=== PATIENT | female | born 1995 | race Caucasian/White ===

== ENCOUNTER 2017-03-29 19:08 | Emergency (ER) | payer MEDICAID ==
[2017-03-29] MEDS ORDERED: NS 1,000 ML IV ONE (19:25)
[2017-03-29] MEDS ORDERED: LORazepam 2 MG/ML INJ IVP ONE (19:25)
[2017-03-29] MEDS ORDERED: KETOROLAC 30 MG/1 ML SDV IVP ONE (19:25)
--- NOTE | 2017-03-29 19:25 | EDPHY ---
H & P Time Seen by Provider: 03/29/17 19:10 HPI/ROS: Chief complaint. Syncope HPI. 21-year-old female here by EMS after syncopal episode. 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 She began to feel hot and lightheaded and dizzy and then had an unwitnessed syncopal episode. She complains of pain to the right side of her neck. No previous syncope. She was feeling well when she went to work today. She has no chest discomfort or trouble breathing. No abdominal pain. No unusual pain swelling to her legs. She takes propranolol for fast heart rate ROS Constitutional. no fever/chills, no weakness Eyes. no problems with vision ENT. no sore throat, no nasal drainage Cardiovascular. no chest pain Respiratory. no shortness of breath, no cough Abdominal. no abdominal pain, no nausea/vomiting, no diarrhea . no problems urinating MS. Right-sided neck pain Skin. no rash Lymph. no swollen glands Neuro. Syncope Past Medical/Surgical History: Hypertension, depression Social History: Single, nonsmoker, no alcohol Physical Exam: General Appearance: Alert well-developed female mild distress vital signs are stable Eyes: Pupils equal and round no pallor or injection. ENT, Mouth: Mucous membranes are moist. Respiratory: There are no retractions, lungs are clear to auscultation. Cardiovascular: Regular rate and rhythm. Gastrointestinal: Abdomen is soft and nontender, no masses, bowel sounds normal. Neurological: Awake and alert, sensory and motor exams grossly normal. Skin: Warm and dry, no rashes. Musculoskeletal: Neck is restrained per EMS. Tenderness to the right side of her neck with palpation. Extremities symmetrical, full range of motion. Psychiatric: Patient is oriented X 3, there is no agitation. Constitutional: Initial Vital Signs Temperature (C) 37.1 C 03/29/17 19:08 Heart Rate 81 03/29/17 19:08 Respiratory Rate 22 H 03/29/17 19:08 Blood Pressure 118/84 H 03/29/17 19:08 O2 Sat (%) 97 03/29/17 19:08 O2 Delivery Mode Room Air O2 (L/minute) 2 Allergies/Adverse Reactions: No Known Allergies Allergy (Unverified 03/29/17 19:31) Home Medications: Medication Instructions Recorded Citalopram 03/29/17 Hydrocodone/APAP 5/325 [[place] 1 each PO Q4-6PRN PRN #8 tab 03/29/17 5/325 (*)] Hydroxycut 03/29/17 Prazosin HCl 03/29/17 Propranolol HCl 03/29/17 Medical Decision Making - Diagnostics EKG Interpretation: EKG interpreted by me shows normal sinus rhythm with normal interval and axis. QRS is normal there is no significant ST elevation or depression. No arrhythmia. The rate is 71 Imaging Results: Imaging Impressions Cervical Spine CT 03/29/17 19:25 IMPRESSION: 1. Secondary feature suggestive of some mild underlying muscle spasm. 2. There is no acute cervical osseous fracture. 3. Scattered shotty cervical lymph nodes, which have short axis diameters of under 1 cm although some of the lymph nodes are mildly elongate. Correlation with serum CBC and differential is suggested. If there is further clinical concern regarding the patient's symptoms, correlative MR imaging could be considered, if otherwise not contraindicated. Findings were discussed with FLORES BARRIOS MD at 20:44, on 03/29/2017. Chest/Thorax CTA 03/29/17 20:36 Impression: 1. There is no CT evidence of pulmonary artery thromboemboli. 2. Query mild thymic hyperplasia and borderline-splenomegaly. Correlation with CBC and differential to assure that there is no evidence of a myeloproliferative disorder, and consider CT reevaluation in 6 months. Findings were discussed with FLORES BARRIOS MD at 21:43, on 03/29/2017. Cervical spine CT shows no evidence of fracture dislocation. There is lymphadenopathy CT chest reviewed by me and discussed with Dr. Rowley shows no evidence of pulmonary embolus Procedures: IV normal saline. Toradol and Ativan ED Course/Re-evaluation: Re-evaluation 8:30 p.m.. Patient and I discussed elevated D-dimer and need for chest CT. She expresses understanding and agreement She complains of continuing pain to the right side of her neck after Toradol and Ativan. She will be given some morphine IV On re-evaluation 10:00 p.m.. Patient is stable. She is much more comfortable. I removed the cervical collar and she has right-sided neck pain but no posterior spine tenderness. Passive and active range of motion reveals no increased pain or neurologic findings and so the cervical collar is discontinued The patient and I discussed lab and imaging and EKG findings. We discussed treatment plan including importance of follow-up for the lymphadenopathy. She expresses understanding and agreement The patient lives in [place] and so her CTs are placed on a disc to give to the patient Differential Diagnosis: I think this is likely vasovagal syncope. I considered cardiac arrhythmia as well as pulmonary embolus. I also considered cervical spine fracture - Data Points Laboratory Results: Laboratory Results 03/29/17 19:00 03/29/17 19:00 03/29/17 03/29/17 03/29/17 19:00 19:00 19:00 WBC RBC Hgb Hct MCV MCH MCHC RDW Plt Count MPV Neut % (Auto) Lymph % (Auto) Coal % (Auto) Eos % (Auto) Baso % (Auto) Nucleat RBC Rel Count Absolute Neuts (auto) Absolute Lymphs (auto) Absolute Monos (auto) Absolute Eos (auto) Absolute Basos (auto) Absolute Nucleated RBC Immature Gran % Immature Gran # D-Dimer 2.16 ug/mLFEU H ug/mLFEU (0.00-0.50) Sodium 144 mEq/L mEq/L (134-144) Potassium 4.1 mEq/L mEq/L (3.5-5.2) Chloride 108 mEq/L mEq/L (97-110) Carbon Dioxide 18 mEq/l L mEq/l (22-31) Anion Gap 18 mEq/L H mEq/L (8-16) BUN 15 mg/dL mg/dL (7-23) Creatinine 0.8 mg/dL mg/dL (0.6-1.0) Estimated GFR > 60 Glucose 82 mg/dL mg/dL (70-100) Calcium 10.7 mg/dL H mg/dL (8.5-10.4) Phosphorus 3.6 mg/dL mg/dL (2.5-4.5) Troponin I < 0.012 ng/mL ng/mL (0-0.034) Beta HCG, Qual NEGATIVE 03/29/17 19:00 WBC 14.71 10^3/uL H 10^3/uL (3.80-9.50) RBC 5.63 10^6/uL H 10^6/uL (4.18-5.33) Hgb 17.3 g/dL H g/dL (12.6-16.3) Hct 49.8 % H % (38.0-47.0) MCV 88.5 fL fL (81.5-99.8) MCH 30.7 pg pg (27.9-34.1) MCHC 34.7 g/dL g/dL (32.4-36.7) RDW 13.6 % % (11.5-15.2) Plt Count 267 10^3/uL 10^3/uL (150-400) MPV 10.9 fL fL (8.7-11.7) Neut % (Auto) 57.2 % % (39.3-74.2) Lymph % (Auto) 33.9 % % (15.0-45.0) Coal % (Auto) 7.2 % % (4.5-13.0) Eos % (Auto) 0.8 % % (0.6-7.6) Baso % (Auto) 0.5 % % (0.3-1.7) Nucleat RBC Rel Count 0.0 % % (0.0-0.2) Absolute Neuts (auto) 8.41 10^3/uL H 10^3/uL (1.70-6.50) Absolute Lymphs (auto) 4.98 10^3/uL H 10^3/uL (1.00-3.00) Absolute Monos (auto) 1.06 10^3/uL H 10^3/uL (0.30-0.80) Absolute Eos (auto) 0.12 10^3/uL 10^3/uL (0.03-0.40) Absolute Basos (auto) 0.08 10^3/uL 10^3/uL (0.02-0.10) Absolute Nucleated RBC 0.00 10^3/uL 10^3/uL (0-0.01) Immature Gran % 0.4 % % (0.0-1.1) Immature Gran # 0.06 10^3/uL 10^3/uL (0.00-0.10) D-Dimer Sodium Potassium Chloride Carbon Dioxide Anion Gap BUN Creatinine Estimated GFR Glucose Calcium Phosphorus Troponin I Beta HCG, Qual Medications Given: Discontinued Medications Sodium Chloride (Ns) 1,000 mls @ 0 mls/hr IV ONCE ONE; Wide Open PRN Reason: Protocol Stop: 03/29/17 19:26 Last Admin: 03/29/17 19:53 Dose: 1,000 mls Ketorolac Tromethamine (Toradol) 30 mg IVP EDNOW ONE Stop: 03/29/17 19:26 Last Admin: 03/29/17 19:54 Dose: 30 mg Lorazepam (Ativan Injection) 1 mg IVP EDNOW ONE Stop: 03/29/17 19:26 Last Admin: 03/29/17 19:54 Dose: 1 mg Morphine Sulfate (Morphine) 6 mg IVP EDNOW ONE Stop: 03/29/17 20:37 Last Admin: 03/29/17 20:40 Dose: 6 mg Departure - Departure Disposition: Home, Routine, Self-Care Clinical Impression: Syncope Qualifiers: Syncope type: vasovagal syncope Qualified Code(s): R55 - Syncope and collapse Acute cervical myofascial strain Qualifiers: Encounter type: initial encounter Qualified Code(s): S16.1XXA - Strain of muscle, fascia and tendon at neck level, initial encounter Condition: Good Instructions: Syncope (ED) Additional Instructions: Drink plenty of fluids and stay hydrated. Easy activity the next 1-2 days. Ibuprofen 600 mg every 6 hours as needed for discomfort. Hydrocodone if necessary in addition. You have some enlarged lymph nodes in your upper chest and neck that should be further evaluated by your regular physician in [place]. I am giving you copies of your CT scans from [facility] to take your physician Return for chest pain, trouble breathing, another passing out episode Referrals: Patient,NotPresent [Unknown] - As per Instructions Prescriptions: Hydrocodone/APAP 5/325 [[place] 5/325 (*)] 1 each PO Q4-6PRN PRN #8 tab PRN Reason: Pain, Moderate
[2017-03-29 19:29] VITALS: TEMP 98.8
[2017-03-29 19:37] LABS: % IMMATURE GRANULYOCYTES 0.4 % (0.0-1.1); ABSOLUTE IMMATURE GRANULOCYTES 0.06 10^3/uL (0.00-0.10); ADD DIFF? NO; ADD MORPH? NO; ADD SCAN? NO; ATYPICAL LYMPHOCYTE FLAG 10 (0-99); FRAGMENT RBC FLAG 0 (0-99); HEMATOCRIT 49.8 % (38.0-47.0); HEMOGLOBIN 17.3 g/dL (12.6-16.3); LEFT SHIFT FLG 0 (0-99); LIPEMIA HEMOLYSIS FLAG 90 (0-99); MEAN CELL HEMOGLOBIN 30.7 pg (27.9-34.1); MEAN CELL HEMOGLOBIN CONCENTR. 34.7 g/dL (32.4-36.7); MEAN CELL VOLUME 88.5 fL (81.5-99.8); MEAN PLATELET VOLUME 10.9 fL (8.7-11.7); PLATELET CLUMPS FLAG 20 (0-99); PLATELET COUNT 267 10^3/uL (150-400); RED BLOOD CELL COUNT 5.63 10^6/uL (4.18-5.33); RED CELL DISTRIBUTION WIDTH 13.6 % (11.5-15.2)
[2017-03-29 19:41] LABS: ANION GAP 18 mEq/L (8-16); CALCIUM 10.7 mg/dL (8.5-10.4); CARBON DIOXIDE 18 mEq/l (22-31); CHLORIDE 108 mEq/L (97-110); CREATININE 0.8 mg/dL (0.6-1.0); GLOMERULAR FILTRATION RATE > 60; GLUCOSE 82 mg/dL (70-100); POTASSIUM 4.1 mEq/L (3.5-5.2); SODIUM 144 mEq/L (134-144)
--- NOTE | 2017-03-29 19:44 | CPEKG ---
Heart Rate: 71 RR Interval: 845 P-R Interval: 168 QRSD Interval: 86 QT Interval: 400 QTC Interval: 435 P [place]: 23 QRS [place]: 55 T Wave [place]: 36 EKG Severity - NORMAL ECG - EKG Impression: SINUS RHYTHM Electronically Signed By: Winston Champagne 29-Mar-2017 21:09:02
[2017-03-29 19:53] LABS: TROPONIN I < 0.012 ng/mL (0-0.034)
[2017-03-29] MEDS ORDERED: IOPAMIDOL (ISOVUE 370) 100 ML BTL IV ONE (20:58)
[2017-03-29] MEDS ORDERED: HYDROCOD/APAP 5/325 PREPACK#6 BTL TAKEHOME ONE (22:03)
[2017-03-29 22:26] VITALS: BP 99/78; PULSE 84; RESP 16; O2SAT 97
== END 2017-03-29 22:25 | disposition home or self-care (01) ==
DX: S16.1XXA Strain of muscle, fascia and tendon at neck level, initial encounter (principal); R55 Syncope and collapse; E86.9 Volume depletion, unspecified; W18.39XA Other fall on same level, initial encounter; Y92.69 Other specified industrial and construction area as the place of occurrence of the external cause; Y99.0 Civilian activity done for income or pay
CPT/HCPCS: 96374; J1885; J2060; Q9967